=== PATIENT | female | born 1935 | race Caucasian/White ===

== ENCOUNTER → 2020-10-21 | Outpatient (CLI) | payer MEDICARE | END | disposition home or self-care (01) | LOC: RAD 16:03 | PROVIDERS: ATTEND Obstetrics & Gynecology | DX: R91.8 Other nonspecific abnormal finding of lung field (principal); N28.1 Cyst of kidney, acquired; N95.0 Postmenopausal bleeding; Z85.41 Personal history of malignant neoplasm of cervix uteri | CPT/HCPCS: 71250 ==

== ENCOUNTER 2020-11-23 09:11 | Outpatient (CLI) | payer MEDICARE | END 2020-11-23 23:59 | disposition home or self-care (01) | LOC: ROC 09:11 | PROVIDERS: ATTEND Radiology Radiation Oncology | DX: C54.1 Malignant neoplasm of endometrium (principal) | CPT/HCPCS: 99214; G0463 ==

== ENCOUNTER → 2020-12-21 | Outpatient (CLI) | payer MEDICARE ==
[~2020-12-21] MED LIST: OMNIPAQUE 350 MG/ML, 75ML BOTTLE ONE
[2020-12-21 15:42] LABS: CREATININE 1.39 mg/dL (0.55-1.02)
== END | disposition home or self-care (01) ==
LOC: RAD 15:07
PROVIDERS: ATTEND Radiology Radiation Oncology
DX: C54.1 Malignant neoplasm of endometrium (principal); R06.02 Shortness of breath; E11.9 Type 2 diabetes mellitus without complications; R91.8 Other nonspecific abnormal finding of lung field
CPT/HCPCS: 36415; 71275; 82565; Q9967

== ENCOUNTER → 2021-01-25 | Outpatient (CLI) | payer MEDICARE ==
[~2021-01-25] MED LIST changes: +AMLO-211 PO; +ASPI81TA45 PO; +ATOR-2 PO; +FURO80TA3 PO; +METO25TA91 PO; -OMNIPAQUE 350 MG/ML, 75ML BOTTLE ONE; +PANT20TA4 PO; +POTA20TA14 PO; +SITA50TA PO; +VALS40TA2 PO
== END | disposition home or self-care (01) ==
LOC: ROC 11:01
PROVIDERS: ATTEND Radiology Radiation Oncology
DX: Z08 Encounter for follow-up examination after completed treatment for malignant neoplasm (principal); C54.1 Malignant neoplasm of endometrium; R53.82 Chronic fatigue, unspecified; R42 Dizziness and giddiness; E11.9 Type 2 diabetes mellitus without complications
CPT/HCPCS: 99212; G0463

== ENCOUNTER → 2021-02-08 | Outpatient (CLI) | payer MEDICARE | END | disposition home or self-care (01) | LOC: ROC 07:16 | PROVIDERS: ATTEND Radiology Radiation Oncology | DX: Z08 Encounter for follow-up examination after completed treatment for malignant neoplasm (principal); C54.1 Malignant neoplasm of endometrium; R53.82 Chronic fatigue, unspecified; R42 Dizziness and giddiness; E11.9 Type 2 diabetes mellitus without complications; E86.0 Dehydration | CPT/HCPCS: 99213; G0463 ==

== ENCOUNTER 2021-02-24 09:35 | Outpatient (CLI) | payer MEDICARE ==
[2021-02-24] MEDS ORDERED: OMNIPAQUE 350 MG/ML, 100ML BOTTLE ONE (10:33)
== END 2021-02-24 23:59 | disposition home or self-care (01) ==
LOC: CFH 09:35
PROVIDERS: ATTEND Radiology Radiation Oncology
DX: C54.1 Malignant neoplasm of endometrium (principal); R91.8 Other nonspecific abnormal finding of lung field
CPT/HCPCS: 71260; 74177; 82565; Q9967

== ENCOUNTER 2021-05-05 07:41 | Outpatient (CLI) | payer MEDICARE | END 2021-05-05 23:59 | disposition home or self-care (01) | LOC: ROC 07:41 | PROVIDERS: ATTEND Radiology Radiation Oncology | DX: Z08 Encounter for follow-up examination after completed treatment for malignant neoplasm (principal); C54.1 Malignant neoplasm of endometrium | CPT/HCPCS: 99213; G0463 ==